=== PATIENT | male | born 1980 | race Asian ===

== ENCOUNTER 2019-08-15 04:25 | Emergency (ER) | payer OTHER ==
[~2019-08-15] VITALS: Ht 167.6 cm; Wt 65.8 kg
[2019-08-15 04:25] VITALS: BP 126/74
--- NOTE | 2019-08-15 04:25 | NUR ---
TO BED # 10 VIA WHEELCHAIR
--- NOTE | 2019-08-15 04:44 | NUR ---
38 Y/O M BIB FAMILY WITH C/O URINARY RETENTION X1 DAY. PT HAD LUMBAR LAMINECTOMY AND DISECTOMY YESTERDAY AT 0900HOUR. PT REPORTS NO URINE OUTPUT SINCE LEAVING THE HOSPITAL YESTERDAY. DRESSING NOTED TO LOWER LUMBAR REGION. FAMILY AT BEDSIDE. WILL CONTINUE TO MONITOR.
[2019-08-15 04:45] VITALS: BP 126/74
--- NOTE | 2019-08-15 05:10 | NUR ---
# 16 FR Penaloza catheter with 10 ml utilizing sterile technique. Immediate return of 800 ml YELLOW urine noted. Bedside drainage bag placed below level of bladder. Urine sample collected and sent to lab. Pt tolerated procedure WELL. Addendum: 08/15/19 at 0543 by ZAY catheter connected to leg bag, attached to R LEG.
--- NOTE | 2019-08-15 05:19 | NUR ---
800ML OF YELLOW URINE OUTPUT COLLECTED JONES LEG BAG.
--- NOTE | 2019-08-15 06:08 | NUR ---
300 PALE YELLOW URINE OUTPUT DRAINED FROM FOLELY.
--- NOTE | 2019-08-15 06:15 | NUR ---
Patient discharged with v/s stable. Written and verbal after care instructions given and explained. Patient verbalized understanding. Wheel Chair Assisted with by RN. All questions addressed prior to discharge. Advised to follow up with PMD.
== END 2019-08-15 06:15 | disposition home or self-care (01) ==
LOC: MED 04:25
DX: R33.9 Retention of urine, unspecified (principal)
CPT/HCPCS: 51702; 99284

== ENCOUNTER 2019-08-18 14:48 | Emergency (ER) | payer OTHER ==
[~2019-08-18] VITALS: Ht 162.6 cm; Wt 68.0 kg
[2019-08-18 15:00] VITALS: BP 122/68
--- NOTE | 2019-08-18 15:40 | NUR ---
PATIENT AMBULATED TO BED 4
--- NOTE | 2019-08-18 15:41 | NUR ---
Dr. Galan is evaluating the patient at bedside.
--- NOTE | 2019-08-18 16:13 | NUR ---
JONES CATHETER REMOVED. PT TOLERATED WELL. WILL CONTINUE TO MONITOR.
--- NOTE | 2019-08-18 16:13 | NUR ---
PT PRESENTS TO THE ED FOR JONES CATHETER REMOVAL. PT HAD A JONES PLACED FOR URINARY RETENTION ON 08/15/19. PT IS ALERT AND ORIENTED X4 AND PRESENTS WITH A CLEAR SPEECH. PT DENIES PAIN AT THIS TIME. FAMILY AT BEDSIDE. ER MD AWARE OF PT STATUS. HX: LAMINECTOMY RX: DENIES
--- NOTE | 2019-08-18 16:36 | NUR ---
Patient discharged with v/s stable. Written and verbal after care instructions given and explained. Patient verbalized understanding. Ambulatory with steady gait. All questions addressed prior to discharge. Advised to follow up with PMD.
[2019-08-18 16:37] VITALS: BP 122/68
== END 2019-08-18 16:36 | disposition home or self-care (01) ==
LOC: MED 14:48
DX: Z46.6 Encounter for fitting and adjustment of urinary device (principal)
CPT/HCPCS: 99283